=== PATIENT | male | born 1965 | race Caucasian/White ===

== ENCOUNTER → 2017-05-27 | Outpatient (CLI) | payer OTHER ==
[2017-05-27 11:25] LABS: HEMATOCRIT 43.1 % (42.0-52.0); HEMOGLOBIN 15.2 g/dl (14.0-18.0); MEAN CELL VOLUME 84.3 fl (80.0-94.0); MEAN CORPUSCULAR HGB 29.7 pg (27.0-31.0); MEAN CORPUSCULAR HGB CONC 35.3 g/dl (33.0-37.0); MEAN PLATELET VOLUME 10.2 fl (9.6-12.3); RED BLOOD COUNT 5.11 10*6/uL (4.50-5.90); RED CELL DISTRI WIDTH 12.6 % (0-14.5); WHITE BLOOD COUNT 10.8 10*3/uL (4.8-10.8)
[2017-05-27 11:37] LABS: ALKALINE PHOSPHATASE 68 U/L (45-117); BUN 16 mg/dl (7-24); CHLORIDE 107 mmol/L (98-107); POTASSIUM 3.7 mmol/L (3.5-5.1); SGOT/AST 39 IU/L (3-35); SGPT/ALT 74 U/L (12-78); SODIUM 142 mmol/L (136-145); TOTAL PROTEIN 7.7 gm/dL (6.4-8.2)
== END | disposition home or self-care (01) ==
LOC: LAB 10:35
PROVIDERS: Registered Nurse Flight
DX: I10 Essential (primary) hypertension (principal); I25.10 Atherosclerotic heart disease of native coronary artery without angina pectoris

== ENCOUNTER → 2018-05-08 | Day surgery (SDC) | payer OTHER ==
[~2018-05-08] VITALS: Ht 175.2 cm; Wt 111.1 kg
[~2018-05-08] MED LIST: ATENOLOL25 MG PO; GABAPENTIN100 M2 PO; LOSARTAN-HCTZ1 EAC1 PO; OMEPRAZOLE40 MG PO; PROVENTIL HFA6.7 GM INH; TESTOSTERO200 MG/1 M IM; VITAMIN D50000 UNIT PO; ZIPRASIDONE HCL20 M1 PO
--- NOTE | ~2018-05-08 | PROC NOTE ---
[place], [place] PROCEDURE NOTE NAME: GONZÁLEZ CALVO V [facility] #: [id number] UNIT #: [id number] ROOM: DOCTOR: BLANE BENNETT MD BIRTHDATE: [birth year] DOS: 05/08/2018 PROCEDURES: 1. Esophagogastroduodenoscopy and biopsy. 2. Colonoscopy and polypectomy. INDICATIONS: GERD and colon cancer screening. Informed consent was obtained from the patient after indication of procedure, the alternatives and potential complications were explained to him. PROCEDURE MEDICATION: Sedation was administered by Anesthesiology Department. Scope used was Olympus pediatric colonoscope variable stiffness GIF-180, depth of insertion with upper endoscopy was to the descending duodenum and with the colonoscopy was to the cecum, which was identified by the usual landmarks, the appendiceal orifice, ileocecal valve and triangular fold. FINDINGS: After adequate sedation, the patient was placed in left lateral decubitus position. Upper endoscopy was performed first. The scope was introduced under direct visualization through the upper esophageal sphincter into the esophagus. The esophageal mucosa appeared normal with no evidence of ulcerations or strictures. Lower esophageal sphincter was identified at 40 cm from incisors with normal appearing Z line. The stomach was then intubated. Gastric mucosa inspected. Moderate gastritis was seen with no discrete ulcers or active bleeding. Retroflexed views in the fundus were unremarkable. The pylorus was intubated easily. The duodenal bulb and descending duodenum were within normal range. The scope was then withdrawn after the stomach was decompressed. We then proceeded with the colonoscopy. Rectal examination showed a diminished sphincter tone and no external hemorrhoids. The scope was introduced into the rectum then advanced to the cecum with no difficulty. Two polyps were identified and removed, an 8-mm descending colon sessile polyp, which was removed with a cold snare and a pedunculated 1.4-cm sigmoid polyp that was removed with a hot snare and recovered as well. The remaining colon mucosa showed evidence of mild left-sided diverticular disease, but no other abnormalities. Retroflexed views in the rectum revealed a grade 1 internal hemorrhoid. The scope was then withdrawn after the rectum was decompressed. The patient tolerated the procedures well. IMPRESSION: 1. Moderate gastritis, CLOtest performed. 2. Normal upper GI tract otherwise. 3. Colon polyps x 2, removed. 4. Mild left-sided diverticular disease. 5. Internal hemorrhoids. PLAN: We will review the histopathology and CLOtest results and treat the patient accordingly. The patient was advised to avoid aspirin and NSAIDs for the next 10 days. Office followup will be scheduled in 2-3 weeks. [place], [place] PROCEDURE NOTE NAME: GONZÁLEZ CALVO V UNIT #: [id number] ROOM: DOCTOR: BLANE BENNETT MD BIRTHDATE: [birth year] BLANE BENNETT MD CM:PROCNOTE:PROCEDURE NOTE [id number] FELIBERTO BENNETT MD
[2018-05-08 09:24] VITALS: BP 114/53
[2018-05-08 10:22] VITALS: BP 105/53
[2018-05-08 10:37] VITALS: BP 131/76
== END | disposition home or self-care (01) ==
LOC: SDC 05-06 08:00
DX: Z12.11 Encounter for screening for malignant neoplasm of colon (principal); D12.5 Benign neoplasm of sigmoid colon; K63.5 Polyp of colon; K64.8 Other hemorrhoids; K29.70 Gastritis, unspecified, without bleeding; K21.9 Gastro-esophageal reflux disease without esophagitis; K57.30 Diverticulosis of large intestine without perforation or abscess without bleeding; J44.9 Chronic obstructive pulmonary disease, unspecified; F41.9 Anxiety disorder, unspecified; I10 Essential (primary) hypertension; E66.9 Obesity, unspecified; Z68.39 Body mass index [BMI] 39.0-39.9, adult; Z79.899 Other long term (current) drug therapy; Z98.890 Other specified postprocedural states; Z82.49 Family history of ischemic heart disease and other diseases of the circulatory system